=== PATIENT | female | born 1945 | race Caucasian/White ===

== ENCOUNTER 2018-01-22 22:20 | Emergency (ER) | payer OTHER, SELFPAY ==
--- NOTE | 2018-01-22 22:25 | DI.CT.S_ITS ---
PROCEDURE: CT ANGIO HEAD AND NECK INDICATIONS: History of hemorrhagic CVA with posterior headache TECHNIQUE: Pre-contrast 4.5 mm thick sections acquired from the foramen magnum to the vertex. After the administration of intravenous contrast, 1 mm thick sections acquired from the aortic arch through the [place]. Post-contrast 4.5 mm thick sections then re-acquired from the foramen magnum to the vertex. 3-dimensional yoheilo-iklsfwkgx-xhvdnlulgn (MIP) and/or volume rendering reformats were acquired of the central intracranial vasculature and neck separately. COMPARISON: [facility], CT, HEAD WITHOUT CONTRAST, 12/10/2016, 12:55. FINDINGS: Image quality: Excellent. BRAIN: CSF spaces: Ventricles are normal in size and shape. Basal cisterns are patent. No extra-axial fluid collections. Brain: No midline shift. No intracranial bleeds or masses. Sun-white matter interface appears intact. Note is made of streak artifact from high density material present along the left tentorium or immediately adjacent, in this patient with prior hemorrhage in that general area. The material on bone level/window evaluation occurs serpiginous and interdigitating, with an appearance suggestive of perhaps radiodense embolization material into an area of prior vascular malformation as treatment for the etiology of the prior hemorrhage Skull and face: Calvarium and facial bones appear intact, without suspicious lesions, except for the prior suboccipital craniotomy as a wide midline calvarial defect in this patient who had hemorrhage into the cerebellar region on prior CT scanning from December of last year. Orbits appear normal. Sinuses: Sinuses and mastoids are clear. HEAD CT ANGIOGRAPHY: Anterior circulation: Intracranial internal carotid arteries are normal in size and flow. The flow within the paired anterior cerebral arteries is normal and symmetric. The flow within the middle cerebral arteries is normal and symmetric. The anterior communicating artery is seen. No aneurysms are seen. Posterior circulation: Visualized portions of the vertebral arteries demonstrate normal caliber, and join to form a normal appearing basilar artery. Flow within the posterior cerebral arteries is normal and symmetric. No aneurysms are seen. NECK CT ANGIOGRAPHY: Carotid system: The great vessels demonstrate a conventional anatomy as they arise from the aortic arch. The origins of the common carotid arteries appear patent. The common carotid arteries demonstrate normal caliber and courses. The bifurcation regions are both widely patent. The internal carotid arteries demonstrate reduced calibers and normal courses. There is a less than 50% stenosis and at the right proximal internal carotid artery and a 50% stenosis at the origin of the left proximal internal carotid artery. Posterior circulation: The origins of the vertebral arteries both appear widely patent. The more superior extracranial portions of both vertebral arteries also demonstrate normal courses and calibers. They join to form a normal appearing basilar artery. The left vertebral artery is dominant. Soft tissues: Visualized neck soft tissues demonstrate no suspicious abnormalities. Bones: No suspicious bony lesions. Visualized cervical spine appears normally aligned. IMPRESSION: No hemorrhage found, suspect embolization material into the left tentorium area of the posterior fossa, in this patient with prior cerebellar hemorrhage and resultant large suboccipital craniotomy in that area subsequent to hemorrhage identified in December of last year. This may represent sequela of treatment for a vascular malformation in that area. Within the brain parenchyma currently no mass is found. There is encephalomalacia and enlargement of the fourth ventricle in the posterior cranial fossa subsequent to the prior hemorrhage. Each proximal internal carotid artery shows appreciable eccentric calcific and soft plaque resulting in approximately 50% stenosis at the origin of these vessels, left slightly greater than right. Note: These findings are concordant with the preliminary interpretation. Any quantitative measurements of stenosis were performed using NASCET criteria. Dictated by: Teto Dean M.D. on 01/23/2018 at 9:27 Approved by: Teto Dean M.D. on 01/23/2018 at 9:51
--- NOTE | 2018-01-22 22:26 | ED_ITS ---
HPI - Headache General Chief Complaint: Hypertension Stated Complaint: Headache, High BP Time Seen by Provider: 01/22/18 22:23 Source: patient Mode of arrival: ambulatory Limitations: no limitations History of Present Illness HPI Narrative: 73-year-old female here for evaluation of a headache. She states she was sitting on her couch when she got a headache on the back of her head and stated that the pain got worse whenever she turns her head from side to side or looked upper lip down. Patient does have a history of a hemorrhagic stroke approximately 1 year ago requiring surgical intervention at [place]. She states she was concerned that she was having another stroke. No numbness or tingling. She has her baseline vision changes after her hemorrhagic stroke. No fevers. No trauma. No numbness and tingling in upper lower extremities. Related Data Allergies Allergy/AdvReac Type Severity Reaction Status Date / Time No Known Drug Allergies Allergy Verified 01/22/18 22:34 Review of Systems Constitutional Denies fever(s) and Reports headache(s) Eyes Reports diplopia (Not new) ENT Ears, Nose, Mouth, and Throat: Reports headache(s) Cardiovascular Denies chest pain and Denies dyspnea Respiratory Denies dyspnea Gastrointestinal Gastrointestinal: Denies abdominal pain and Denies nausea Musculoskeletal Denies myalgias and Denies arthralgias Integumentary/Breasts Denies pruritus and Denies rash Neurologic Reports headache(s) Hematologic/Lymphatic Denies easy bleeding [facility] Medical History Hemorrhagic stroke (Acute) Surgical History History of craniotomy (Acute) Social History Smoking Status: Never smoker Exam Initial Vital Signs Initial Vital Signs: Vital Signs Temperature 97.7 F 01/22/18 22:35 Pulse Rate 55 L 01/22/18 22:35 Respiratory Rate 19 01/22/18 22:35 Blood Pressure 183/85 H 01/22/18 22:35 Pulse Oximetry 98 01/22/18 22:35 Const General: cooperative, healthy appearing, comfortable, well developed, well groomed and No acute distress Orientation: alert, awake and oriented x3 HENMT Head: normal to inspection and normocephalic Resp Effort & Inspection: normal respiratory effort Cardio Rate: regular rate Rhythm: regular rhythm Pulses: radial pulses present Back/Spine/Pelvis Other: Patient with tenderness to palpation paraspinal cervical region and occipital region. She states that touching this area reproduced the pain that brought her in this evening. Skin Lesions: no lesions Rashes: no rashes Neuro General: alert, awake and oriented x3 Cranial Nerves: CN's II-XI intact bilaterally Cognition: normal cognition Speech: speech normal Motor: muscle tone normal throughout Sensory Exam: no sensory deficits noted Extrem General: normal to inspection Psych Appearance: grossly normal and well kempt Course Orders Ordered: ED Orders 01/22/18 22:15 Basic Metabolic Panel Stat Complete Blood Count AUTO DIFF Stat 01/22/18 22:25 CT angio head and neck Stat Discontinued Medications Sodium Chloride (Normal Saline 0.9%) 1,000 mls @ 1,000 mls/hr IV BOLUS ONE Stop: 01/22/18 23:22 Last Admin: 01/22/18 22:47 Dose: 1,000 mls/hr Vital Signs - 8 hr 01/22/18 22:35 Temperature 97.7 F Pulse Rate 55 L Respiratory Rate 19 Blood Pressure 183/85 H Pulse Oximetry 98 MDM - Headache Medical Records Attestation: I reviewed the patient's medical records. Lab Data Attestation: I reviewed the patient's lab results. Result diagrams: 01/22/18 22:15 01/22/18 22:15 Lab Results 01/22/18 01/22/18 Range/Units 22:15 22:15 WBC 6.9 (4.5-11.0) X10^3/uL RBC 4.44 (4.0-5.2) X10^6/uL Hgb 13.4 (12.0-16.0) g/dL Hct 39.8 (36-46) % MCV 89.7 (80-100) fL MCH 30.3 (26-34) PG MCHC 33.8 (30-36) % RDW 13.5 (11.6-14.8) % Plt Count 255 (150-400) X10^3/uL Neut % (Auto) 76.8 H (50-75) % Lymph % (Auto) 14.0 L (25-40) % [place] % (Auto) 6.6 (3-14) % Eos % (Auto) 1.9 L (2-4) % Baso % (Auto) 0.7 (0-2) % Neut # (Auto) 5300 (9681-5651) /uL Sodium 141 (137-145) mmol/L Potassium 4.1 (3.4-5.1) mmol/L Chloride 103 (98-107) mmol/L Carbon Dioxide 30 (22-32) mmol/L BUN 19 H (7-17) mg/dL Creatinine 0.40 L (0.52-1.04) mg/dL Estimated GFR > 60.0 (>60) mL/min BUN/Creatinine Ratio 47.5 H (6-22) Glucose 100 (80-110) mg/dL Calcium 9.6 (8.4-10.2) mg/dL Imaging Data CTA head neck: Radiologist's impression: CT of the head Conclusion Diffuse atrophy, old right frontal lobe infarct, postoperative changes in the cerebellum with dilation of the 4th ventricle and scattered periventricular white matter disease, calcification left cerebellum possibly due to dystrophic calcification, calcification of the tentorium or previous embolization procedure. 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 There maybe as much as 50% stenosis of the proximal left internal carotid artery MDM Narrative Medical decision making narrative: During her stay here in the emergency department patient reports a great improvement of her symptoms. She states that palpation of the posterior cervical spine and occipital region of her head reproduce the pain that brought her in this evening. Given the CTA showing no acute pathology and the fact that I can reproduce the symptoms with palpation will hold on further workup for now. I suspect musculoskeletal etiology. She has an unchanged neurologic exam. Patient was given return precautions. She expressed understanding and agreement with plan. Discharge Plan Departure Patient Disposition: Home Clinical Impression: Headache Instructions: DI for Headache Activity Restrictions/Additional Instructions: Continue all of your medications as directed. Call your primary care doctor for a follow-up. Return to the emergency department for any new symptoms, worsening symptoms, worsening headache, or any other concerning symptoms.
[2018-01-22 22:35] VITALS: BP 183/85; PULSE 55; RESP 19; TEMP 36.5; O2SAT 98; BMI 18.8
[2018-01-22] MEDS: SODIUM CHLORIDE 0.9% 1,000 ML 1000 ML IV (22:47)
[2018-01-22 22:59] LABS: Add Manual Diff / Slide Review NO; Basophils Percent Auto 0.7 % (0-2); Eosinophils Percent Auto 1.9 % (2-4); Hematocrit 39.8 % (36-46); Hemoglobin 13.4 g/dL (12.0-16.0); Mean Corpuscular HGB Conc 33.8 % (30-36); Mean Corpuscular Hemoglobin 30.3 PG (26-34); Mean Corpuscular Volume 89.7 fL (80-100); Monocytes Percent Auto 6.6 % (3-14); Neutrophils Absolute Auto 5300 /uL (3000-5900); Neutrophils Percent Auto 76.8 % (50-75); Platelet Count 255 X10^3/uL (150-400); Red Blood Cell Count 4.44 X10^6/uL (4.0-5.2); Red Cell Distribution Width 13.5 % (11.6-14.8); White Blood Cell Count 6.9 X10^3/uL (4.5-11.0)
[2018-01-22 23:01] LABS: BUN Creatinine Ratio 47.5 (6-22); Blood Urea Nitrogen 19 mg/dL (7-17); Calcium 9.6 mg/dL (8.4-10.2); Carbon Dioxide 30 mmol/L (22-32); Chloride 103 mmol/L (98-107); Estimated Glomerular Filt Rate > 60.0 mL/min (>60); Glucose 100 mg/dL (80-110); HEMOLYSIS 29 (0-50); Potassium 4.1 mmol/L (3.4-5.1); Sodium 141 mmol/L (137-145)
[2018-01-23 01:12] VITALS: BP 166/69; PULSE 92; RESP 15; O2SAT 98
== END 2018-01-23 01:13 | disposition home or self-care (01) ==
PROVIDERS: Emergency Provider Emergency Medicine; Family Provider Nurse Practitioner; PCP Nurse Practitioner
DX: R51 Headache (principal)
CPT/HCPCS: 36591; 70496; 70498; 80048; 85025; 96360; 96361; 99283; 99284; 99291; Q9967

== ENCOUNTER → 2023-06-29 10:06 | Outpatient (CLI) | payer MEDICARE, SELFPAY ==
--- NOTE | 2023-06-29 10:09 | DI.RAD.S_ITS ---
PROCEDURE: XR HUMERUS LT 2V INDICATIONS: Fall TECHNIQUE: 2 views of the humerus were acquired. COMPARISON: None. FINDINGS: Bones: No fractures or dislocations. No suspicious bony lesions. Soft tissues: No suspicious soft tissue calcifications. IMPRESSION: No acute bony abnormality. If there is high clinical suspicion for a radiographically occult fracture, consider repeat radiograph in 7-10 days. Dictated by: Luz Root M.D. on 06/29/2023 at 19:20 Approved by: Luz Root M.D. on 06/29/2023 at 19:21
--- NOTE | 2023-06-29 10:09 | DI.RAD.S_ITS ---
PROCEDURE: XR RIBS LT MIN 3V W CXR1V INDICATIONS: Fall TECHNIQUE: 4 views of the ribs were acquired, along with a single view chest. COMPARISON: [facility], CT, CT ABDOMEN PELVIS WITH CONTRAST, 07/07/2017, 12:53. [facility], CR, XR CHEST 1 VIEW, 11/16/2022, 10:38. FINDINGS: Surgical changes and devices: None. Bones and chest wall: Age-indeterminate nondisplaced fractures of the left posterolateral 9th and 10th ribs, not well seen on the prior. No suspicious bony lesions. Overlying soft tissues appear unremarkable. Degenerative changes of the spine. Lungs and pleura: No pleural effusions or pneumothorax. Lungs appear clear. Mediastinum: Mediastinal contours appear normal. Heart size is normal. Aortic arch is calcified, indicating atherosclerosis. Upper Abdomen: Calcification of the abdominal aorta. IMPRESSION: Age indeterminate nondisplaced fractures of the left posterolateral 9th and 10th ribs, not well seen on prior radiograph dated November 17, 2019. No pneumothorax. Correlate for point tenderness. Dictated by: Luz Root M.D. on 06/29/2023 at 19:16 Approved by: Luz Root M.D. on 06/29/2023 at 19:20
== END ==
LOC: RAD 10:08
PROVIDERS: Family Provider Nurse Practitioner; PCP Nurse Practitioner; Referring Provider Nurse Practitioner Family; Visit Provider Nurse Practitioner Family
DX: T14.90XA Injury, unspecified, initial encounter (principal); W19.XXXA Unspecified fall, initial encounter
CPT/HCPCS: 71101; 73060